=== PATIENT | female | born 1965 ===

== ENCOUNTER 2022-01-07 05:45 | Day surgery (SDC) | payer OTHER ==
[~2022-01-07] VITALS: Ht 165.1 cm; Wt 93.0 kg
[~2022-01-07 05:45] MED LIST: ACID REDUCER20 M1 PO; CYMBALTA20 MG PO; GABAPENTIN800 M1 PO; ULTRAM50 MG PO; ZYRTEC10 M3 PO
== END 2022-01-07 16:05 | disposition home or self-care (01) ==
LOC: CIR.AMB 05:45
PROVIDERS: ATTEND Obstetrics & Gynecology
DX: N84.0 Polyp of corpus uteri (principal); Z20.822 Contact with and (suspected) exposure to COVID-19; J45.909 Unspecified asthma, uncomplicated